=== PATIENT | male | born 1975 | race Caucasian/White ===

== ENCOUNTER 2017-12-10 12:04 | Emergency (ER) | payer OTHER ==
[~2017-12-10] VITALS: Ht 193 cm; Wt 83.5 kg
[~2017-12-10 12:04] MED LIST: BACTRIM DS TAB1 EACH PO; CYCLOBENZAPRINE10 MG PO
[2017-12-10] MEDS ORDERED: ZITHROMAX250 MG PO (12:28)
[2017-12-10] MEDS ORDERED: NAPROXEN500 MG PO (13:12)
[2017-12-10] MEDS ORDERED: PREDNISONE20 MG PO (13:12)
[2017-12-10] MEDS ORDERED: TESSALON PERLE100 MG PO (13:12)
[2017-12-10] MEDS ORDERED: GUAIFENESIN-COD10 ML PO (13:12)
[2017-12-10] MEDS ORDERED: LEVAQUIN500 MG PO (13:12)
== END 2017-12-10 13:21 | disposition home or self-care (01) ==
LOC: ED 12:04
DX: J20.9 Acute bronchitis, unspecified (principal); F17.200 Nicotine dependence, unspecified, uncomplicated; Z79.2 Long term (current) use of antibiotics
CPT/HCPCS: 71045; 94640; 96372; 99283; J1885; J7512

== ENCOUNTER 2018-08-18 17:59 | Emergency (ER) | payer SELFPAY ==
[~2018-08-18] VITALS: Ht 193 cm; Wt 95.2 kg
[~2018-08-18 17:59] MED LIST changes: +GUAIFENESIN-COD10 ML PO; +LEVAQUIN500 MG PO; +NAPROXEN500 MG PO; +PREDNISONE20 MG PO; +TESSALON PERLE100 MG PO; +ZITHROMAX250 MG PO
[2018-08-18] MEDS ORDERED: PROVENTIL HFA6.7 GM INH (20:39)
[2018-08-18] MEDS ORDERED: DOXYCYCLINE HY100 MG PO (20:39)
== END 2018-08-18 20:48 | disposition home or self-care (01) ==
LOC: ED 17:59
DX: J20.9 Acute bronchitis, unspecified (principal); F17.200 Nicotine dependence, unspecified, uncomplicated
CPT/HCPCS: 71046; 94640; 99283

== ENCOUNTER 2019-02-15 16:38 | Emergency (ER) | payer OTHER ==
[~2019-02-15] VITALS: Ht 193 cm; Wt 95.2 kg
[~2019-02-15 16:38] MED LIST changes: +DOXYCYCLINE HY100 MG PO; +PROVENTIL HFA6.7 GM INH
[2019-02-15] MEDS ORDERED: PREDNISONE20 MG PO (17:26)
== END 2019-02-15 17:44 | disposition home or self-care (01) ==
LOC: ED 16:38
DX: L30.9 Dermatitis, unspecified (principal)
CPT/HCPCS: 99282; J7512

== ENCOUNTER 2019-03-05 08:12 | Emergency (ER) | payer OTHER ==
[~2019-03-05] VITALS: Ht 193 cm; Wt 101.0 kg
--- OUTSIDE RECORDS SUMMARY | 2019-03-05 08:14 | XMS ---
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 Mily VISIT COUNT ([address] [facility] TOTAL 3 NOTE: Visits indicate total known visits. ED/UCC VISIT TRACKING (12 MO.) 03/05/2019 08:12 [facility] TYPE: Emergency COMPLAINT: - RASH 02/15/2019 16:39 [facility] TYPE: Emergency COMPLAINT: - RASH DIAGNOSES: - Dermatitis, unspecified - Rash and other nonspecific skin eruption 08/18/2018 18:00 [facility] TYPE: Emergency COMPLAINT: - COUGH/CONGESTION DIAGNOSES: - Nicotine dependence, unspecified, uncomplicated - Cough - Acute bronchitis, unspecified INPATIENT VISIT TRACKING (12 MO.) No inpatient visits to display in this time frame [id number]
[2019-03-05] MEDS ORDERED: TRIAMCINOLONE A15 G1 TOP (08:33)
== END 2019-03-05 08:36 | disposition home or self-care (01) ==
LOC: ED 08:12
DX: L30.9 Dermatitis, unspecified (principal); F17.200 Nicotine dependence, unspecified, uncomplicated
CPT/HCPCS: 99282

== ENCOUNTER 2020-10-22 17:32 | Emergency (ER) | payer SELFPAY ==
[~2020-10-22] VITALS: Ht 193 cm; Wt 100.7 kg
[~2020-10-22 17:32] MED LIST changes: +TRIAMCINOLONE A15 G1 TOP
--- OUTSIDE RECORDS SUMMARY | 2020-10-22 19:04 | XMS ---
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 Courtney has no Care Guidelines for this patient. Care History Medical/Surgical 03/07/2019 [facility] - CHW RECEIVED ED CASE MANAGEMENT CONSULT- HELP PATIENT WITH NO PCP SET UP. - CHW CALLED PATIENT- LEFT A VOICEMAIL. - SENT NO PCP LETTER TO PATIENT. Mily VISIT COUNT (12 MO.) [address] [place] [address] TOTAL 1 NOTE: Visits indicate total known visits. ED/UCC VISIT TRACKING (12 MO.) 10/22/2020 17:32 [facility] TYPE: Emergency COMPLAINT: - SORE THROAT INPATIENT VISIT TRACKING (12 MO.) No inpatient visits to display in this time frame [id number]
[2020-10-22] MEDS ORDERED: FLONASE ALLERG9.9 ML NAS (21:06)
[2020-10-22] MEDS ORDERED: IBU600 MG PO (21:06)
== END 2020-10-22 21:38 | disposition home or self-care (01) ==
LOC: ED 17:32
DX: J06.9 Acute upper respiratory infection, unspecified (principal); F17.200 Nicotine dependence, unspecified, uncomplicated; Z20.828 Contact with and (suspected) exposure to other viral communicable diseases
CPT/HCPCS: 87880; 99283; A9270; C9803; J1100; U0003

== ENCOUNTER 2022-10-01 07:14 | Emergency (ER) | payer OTHER ==
[~2022-10-01] VITALS: Ht 193 cm; Wt 94.8 kg
[~2022-10-01 07:14] MED LIST changes: +FLONASE ALLERG9.9 ML NAS; +IBU600 MG PO
--- OUTSIDE RECORDS SUMMARY | 2022-10-01 07:22 | XMS ---
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 Care History Medical/Surgical 03/07/2019 [facility] - W RECEIVED ED CASE MANAGEMENT CONSULT- HELP PATIENT WITH NO PCP SET UP. - CHW CALLED PATIENT- LEFT A VOICEMAIL. - SENT NO PCP LETTER TO PATIENT. Mily VISIT COUNT (12 MO.) 2 [facility]. TOTAL 2 NOTE: Visits indicate total known visits. ED/UCC VISIT TRACKING (12 MO.) 10/01/2022 07:15 [facility] TYPE: Emergency COMPLAINT: - CAT BITE R HAND 02/28/2022 17:55 [facility] TYPE: Emergency COMPLAINT: - SINUS CONGESTION,COUGH INPATIENT VISIT TRACKING (12 MO.) No inpatient visits to display in this time frame [id number]
[2022-10-01] MEDS ORDERED: AMOX TR-K CLV1 EAC1 PO (08:16)
[2022-10-01] MEDS ORDERED: PERCOCET 5-3251 EACH PO (21:12)
== END 2022-10-01 09:02 | disposition home or self-care (01) ==
LOC: ED 07:14
DX: S61.451A Open bite of right hand, initial encounter (principal); F17.200 Nicotine dependence, unspecified, uncomplicated; Z23 Encounter for immunization; W55.01XA Bitten by cat, initial encounter
CPT/HCPCS: 73130; 90715; 99283-25

== ENCOUNTER 2022-10-01 17:00 | Emergency (ER) | payer OTHER ==
[~2022-10-01] VITALS: Ht 193 cm; Wt 94.8 kg
[~2022-10-01 17:00] MED LIST changes: +AMOX TR-K CLV1 EAC1 PO
--- OUTSIDE RECORDS SUMMARY | 2022-10-01 17:06 | XMS ---
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 Care History Medical/Surgical 03/07/2019 [facility] - CHW RECEIVED ED CASE MANAGEMENT CONSULT- HELP PATIENT WITH NO PCP SET UP. - CHW CALLED PATIENT- LEFT A VOICEMAIL. - SENT NO PCP LETTER TO PATIENT. Mily VISIT COUNT (12 MO.) 3 [facility] TOTAL 3 NOTE: Visits indicate total known visits. ED/UCC VISIT TRACKING (12 MO.) 10/01/2022 17:00 [facility] TYPE: Emergency COMPLAINT: - CAT BITE, R HAND SWOLLEN 10/01/2022 07:15 [facility] TYPE: Emergency COMPLAINT: - CAT BITE R HAND 02/28/2022 17:55 [facility] TYPE: Emergency COMPLAINT: - SINUS CONGESTION,COUGH INPATIENT VISIT TRACKING (12 MO.) No inpatient visits to display in this time frame [id number]
[2022-10-01] MEDS ORDERED: PERCOCET 5-3251 EACH PO (21:12)
== END 2022-10-01 21:35 | disposition home or self-care (01) ==
LOC: ED 17:00
DX: L03.115 Cellulitis of right lower limb (principal); F17.200 Nicotine dependence, unspecified, uncomplicated
CPT/HCPCS: 36415; 73201; 80053; 83605; 85025; 99284-25; J0295; J2270; Q9967